=== PATIENT | female | born 1970 | race Caucasian/White ===

== ENCOUNTER → 2021-04-27 | Outpatient (CLI) | payer OTHER | LOC: KOH-I 08:44 | DX: M25.561 Pain in right knee (principal); M25.562 Pain in left knee; M53.3 Sacrococcygeal disorders, not elsewhere classified; M17.0 Bilateral primary osteoarthritis of knee; M47.818 Spondylosis without myelopathy or radiculopathy, sacral and sacrococcygeal region | CPT/HCPCS: 72202; 73562 ==

== ENCOUNTER 2021-08-08 10:48 | Emergency (ER) | payer OTHER ==
[2021-08-08 11:40] LABS: HEMOGLOBIN 13.2 gm/dl (12.3-15.3); RED BLOOD COUNT 4.32 M/UL (4.00-5.10); WHITE BLOOD COUNT 10.9 K/UL (4.5-11.0)
[2021-08-08 12:30] LABS: BUN/CREATININE RATIO 29 (0-10)
[2021-08-08] MEDS ORDERED: ZYRTEC10 M3 PO (14:05)
[2021-08-08] MEDS ORDERED: BENZONATATE100 MG PO (14:05)
== END 2021-08-08 14:16 | disposition home or self-care (01) ==
LOC: ER1 10:48
PROVIDERS: Physician Assistant
DX: J06.9 Acute upper respiratory infection, unspecified (principal); F17.200 Nicotine dependence, unspecified, uncomplicated; Z20.822 Contact with and (suspected) exposure to COVID-19; Z88.1 Allergy status to other antibiotic agents; Z85.038 Personal history of other malignant neoplasm of large intestine
CPT/HCPCS: 0240U; 71045; 80053; 82550; 82553; 83874; 84484; 85025; 93005; 99284

== ENCOUNTER → 2021-11-21 | Outpatient (CLI) | payer OTHER ==
[~2021-11-21] MED LIST: BENZONATATE100 MG PO; ZYRTEC10 M3 PO
== END ==
LOC: EXRD 15:30
DX: R59.0 Localized enlarged lymph nodes (principal); R91.1 Solitary pulmonary nodule
CPT/HCPCS: 76536

== ENCOUNTER → 2021-11-30 | Outpatient (CLI) | payer OTHER | LOC: RAD 15:01 | DX: R05.1 Acute cough (principal) | CPT/HCPCS: 71046 ==